=== PATIENT | female | born 1960 | race African-American/Black ===

== ENCOUNTER 2018-11-20 16:57 | Emergency (ER) | payer MEDICAID ==
[~2018-11-20] VITALS: Ht 170.2 cm; Wt 63.0 kg
[~2018-11-20 16:57] MED LIST: ZITHROMAX250 MG ORAL
[2018-11-20 17:01] VITALS: BP 160/86
--- NOTE | 2018-11-20 17:12 | Emergency Room Report ---
History of Present Illness General Chief Complaint: Animal Bite Source: Patient Present Illness HPI 58-year-old female with history of hypertension and currently controlled with medication here complaining of 2 days of extremely pruritic rash on both lower legs and one painful rash on left forearm. Patient reports that she was with her grandmother few days ago and there were a lot of bedbugs in the bed that she slept on. Patient is rating her pain 3 out of 10 denies pain radiation has not taken any medication for pain or anything for pruritus. Denies fever and chills, shortness of breath, palpitation, nausea vomiting, abdominal pain. Patient reports that she did not take her blood pressure medication today however does not present with any hypertensive urgency symptoms. Denies dizziness and headache. Allergies: Coded Allergies: No Known Allergies (Unverified , 05/28/13) Patient History Past Medical History: see triage record Past Surgical History: unable to obtain Pertinent Family History: none Now: No Immunizations: UTD Reviewed Nursing Documentation: PMH: Agreed; PSxH: Agreed Nursing Documentation-PMH Past Medical History: No Stated History Review of Systems All Other Systems: negative except mentioned in HPI Physical Exam Vital Signs Date Time Temp Pulse Resp B/P (MAP) Pulse Ox O2 Delivery O2 Flow Rate FiO2 11/20/18 17:01 98.1 99 18 160/86 (110) 97 Room Air Sp02 EP Interpretation: reviewed, normal General Appearance: normal inspection, well appearing, no apparent distress, alert, GCS 15 Head: normocephalic, atraumatic Eyes: bilateral eye normal inspection, bilateral eye PERRL ENT: normal ENT inspection, hearing grossly normal, normal pharynx, no angioedema Neck: normal inspection, full range of motion, supple, thyroid normal Respiratory: normal inspection, chest non-tender, lungs clear, normal breath sounds, no rhonchi, no wheezing Cardiovascular #1: normal inspection, no edema, no murmur, normal capillary refill Gastrointestinal: normal inspection, non tender, soft Genitourinary: no CVA tenderness Musculoskeletal: back normal, digits/nails normal, gait/station normal, normal range of motion Neurologic: normal inspection, alert, oriented x3, responsive Psychiatric: normal inspection, judgement/insight normal Skin: other - infected insect bite on left forearm Lymphatic: normal inspection, no adenopathy Medical Decision Making PA Attestation All diagnoses and treatment plans were reviewed and discussed with my supervising physician Dr. Bedoya Diagnostic Impression: Primary Impression: Insect bite Additional Impression: Cellulitis of left forearm 58-year-old female with history of hypertension and currently controlled with medication here complaining of 2 days of extremely pruritic rash on both lower legs and one painful rash on left forearm. Patient reports that she was with her grandmother few days ago and there were a lot of bedbugs in the bed that she slept on. Patient is rating her pain 3 out of 10 denies pain radiation has not taken any medication for pain or anything for pruritus. Denies fever and chills, shortness of breath, palpitation, nausea vomiting, abdominal pain. Patient reports that she did not take her blood pressure medication today however does not present with any hypertensive urgency symptoms. Denies dizziness and headache. Ddx considered but are not limited to : Cellulitis, , superficial infection, abscess Vital signs: are WNL, pt. is afebrile H&PE are most consistent with: cellulitis of left forearm secondary to insect bite ORDERS: Ibuprofen, benadryl, keflex, hydrocortisone cream ED INTERVENTIONS: None required at this time. DISCHARGE: At this time pt. is stable for d/c to home. Will provide printed patient care instructions, and any necessary prescriptions. Care plan and follow up instructions have been discussed with the patient prior to discharge. if fever/chills return to ER> see primary Dr for follow up. Last Vital Signs Date Time Temp Pulse Resp B/P (MAP) Pulse Ox O2 Delivery O2 Flow Rate FiO2 11/20/18 17:01 98.1 99 18 160/86 (110) 97 Room Air Disposition: HOME, SELF-CARE Condition: Stable Scripts Hydrocortisone/Aloe Vera 1%* (HYDROCORTISONE-ALOE 1% CREAM*) Y Cr 1 APPLIC TOPIC Q6H PRN for Itching, #30 GM Prov: Savanna Olivera 11/20/18 Diphenhydramine HCl (Benadryl) 25 Mg Capsule 25 MG PO TID, #21 CAP Prov: Savanna Olivera 11/20/18 Ibuprofen* (MOTRIN*) 600 Mg Tablet 600 MG ORAL FOUR TIMES A DAY, #30 TAB 0 Refills Prov: Savanna Olivera 11/20/18 Cephalexin* (KEFLEX*) 500 Mg Capsule 500 MG ORAL EVERY 6 HOURS for 7 Days, #28 CAP Prov: Savanna Olivera 11/20/18 Patient Instructions: Cellulitis, [id number], Insect Bite, [id number] Additional Instructions: Take medication as directed avoid hot showers, and exposure to new allergens if fever and chills return to the emergency room follow-up with the primary care provider. Savanna Olivera Nov 20, 2018 17:12
[2018-11-20] MEDS ORDERED: CEPHALEXIN500 MG ORAL (17:13)
[2018-11-20] MEDS ORDERED: HYDROCORTISONE-30 GM TOPIC (17:13)
[2018-11-20] MEDS ORDERED: BENADRYL25 M3 PO (17:13)
[2018-11-20] MEDS ORDERED: IBUPROFEN600 MG ORAL (17:13)
[2018-11-20 17:23] VITALS: BP 154/85
--- NOTE | 2018-11-20 17:23 | NUR ---
ER DISCHARGE NOTE: Pt as seen due to possible big bites on her legs and arms. Patient is cleared to be discharged per ERMD, pt is aox4, on room air, with stable vital signs. pt was given dc and prescription instructions, pt was able to verbalize understanding, pt id band removed without complications. pt is able to ambulate with steady gait. pt took all belongings.
== END 2018-11-20 17:30 | disposition home or self-care (01) ==
LOC: EMR 17:25
DX: S50.862A Insect bite (nonvenomous) of left forearm, initial encounter (principal); W57.XXXA Bitten or stung by nonvenomous insect and other nonvenomous arthropods, initial encounter; Y92.9 Unspecified place or not applicable; L03.114 Cellulitis of left upper limb
CPT/HCPCS: 99282